=== PATIENT | female | born 1965 | race Caucasian/White ===

== ENCOUNTER 2016-12-08 19:45 | Emergency (ER) | payer OTHER ==
--- NOTE | 2016-12-08 19:58 | PDOC ---
History of Present Illness - General History Source: Patient Exam Limitations: No Limitations - History of Present Illness Initial Comments: 12/08/16 20:17 The patient is a 51 year old female, with a significant past medical history of GERD and chronic back pain, who presents to the emergency department with back pain. She describes her back pain as localized throughput her upper and mid back , moderate in severity, rating it a 8/10 in severity. She denies any radiation of the pain. She reports that her pain is exacerbated with certain movements and when she takes a deep breath. She states that she has a mentality disabled child who is not aware of their own weight. The child jumped on her today which caused the exacerbation of her chronic back pain. The patient denies chest pain, shortness of breath, headache and dizziness. Denies fever, chills, nausea, vomit, diarrhea and constipation. 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), tobacco (10 daily), marijuana and cocaine use (Has been in rehab) <Chano Jansen - Last Filed: 12/08/16 20:24> <Lorelei Mendez - Last Filed: 12/09/16 02:16> - General Chief Complaint: Pain Stated Complaint: NECK, BACK PAIN Time Seen by Provider: 12/08/16 19:54 Past History <Chano Jansen - Last Filed: 12/08/16 20:24> - Past Medical History Anemia: No Asthma: No Cardiac Disorders: No CVA: No COPD: No Diabetes: No GI Disorders: Yes (GERD) Disorders: No HTN: No Hypercholesterolemia: No Kidney Stones: No Suicide Attempt (Hx): No (DENIES) Seizures: No - Surgical History Abdominal Surgery: No Appendectomy: No Cardiac Surgery: No Cholecystectomy: Yes Lung Surgery: No Neurologic Surgery: No Orthopedic Surgery: No - Reproductive History PID: No - Psycho/Social/Smoking Cessation Hx Anxiety: No Suicidal Ideation: No Smoking History: Current every day smoker Have you smoked in the past 12 months: Yes Number of Cigarettes Smoked Daily: 10 'Breaking Loose' booklet given: 06/13/16 Hx Alcohol Use: No (SOBER 14 MONTHS) Drug/Substance Use Hx: Yes (COCAINE/MARIJUANA) Substance Use Type: Alcohol, Cocaine, Marijuana Hx Substance Use Treatment: Yes ([facility]) <Lorelei Mendez - Last Filed: 12/09/16 02:16> - Past Medical History Allergies/Adverse Reactions: Allergies Allergy/AdvReac Type Severity Reaction Status Date / Time No Known Allergies Allergy Verified 12/08/16 19:51 Home Medications: Ambulatory Orders Trazodone HCl [Desyrel -] 100 mg PO HS 04/04/16 Naproxen Sodium [Naproxen Sodium Ds] 550 mg PO BID PRN #20 tablet 12/08/16 Tizanidine HCl [Zanaflex (Nf) -] 2 mg PO TID PRN #12 tablet 12/08/16 Trauma Specific PMHX - Complaint Specific PMHX Arthritis: No <Lorelei Mendez - Last Filed: 12/09/16 02:16> Review of Systems - Review of Systems Able to Perform ROS?: Yes Comments:: 12/08/16 20:17 GENERAL/CONSTITUTIONAL: No fever or chills. No weakness. HEAD, EYES, EARS, NOSE AND THROAT: No change in vision. No ear pain or discharge. No sore throat. CARDIOVASCULAR: No chest pain or shortness of breath RESPIRATORY: No cough, wheezing, or hemoptysis. GASTROINTESTINAL: No nausea, vomiting, diarrhea or constipation. GENITOURINARY: No dysuria, frequency, or change in urination. MUSCULOSKELETAL: +Back pain. No joint or muscle swelling or pain. No neck pain. SKIN: No rash NEUROLOGIC: No headache, vertigo, loss of consciousness, or change in strength/ sensation. ENDOCRINE: No increased thirst. No abnormal weight change HEMATOLOGIC/LYMPHATIC: No anemia, easy bleeding, or history of blood clots. ALLERGIC/IMMUNOLOGIC: No hives or skin allergy. <Chano Jansen - Last Filed: 12/08/16 20:24> *Physical Exam - Vital Signs Last Vital Signs Temp Pulse Resp BP Pulse Ox 98.1 F 81 18 123/81 96 12/08/16 19:45 12/08/16 19:45 12/08/16 19:45 12/08/16 19:45 12/08/16 19:45 - Physical Exam Comments: 12/08/16 20:24 GENERAL: Awake, alert, and fully oriented, in no acute distress HEAD: No signs of trauma, normocephalic, atraumatic EYES: PERRLA, EOMI, sclera anicteric, conjunctiva clear ENT: Auricles normal inspection, hearing grossly normal, nares patent, oropharynx clear without exudates. Moist mucosa NECK: Normal ROM, supple, no lymphadenopathy, JVD, or masses LUNGS: No distress, speaks full sentences, clear to auscultation bilaterally HEART: Regular rate and rhythm, normal S1 and S2, no murmurs, rubs or gallops, peripheral pulses normal and equal bilaterally. ABDOMEN: Soft, nontender, normoactive bowel sounds. No guarding, no rebound. No masses MUSCULOSKELETAL: +Tenderness and pain with movement of right periscapular muscles, right trapezius muscles. No other chest wall tenderness. EXTREMITIES: Normal inspection, Normal range of motion, no edema. No clubbing or cyanosis. NEUROLOGICAL: Cranial nerves II through XII grossly intact. Normal speech, normal gait, no focal sensorimotor deficits SKIN: Warm, Dry, normal turgor, no rashes or lesions noted. <Chano Jansen - Last Filed: 12/08/16 20:24> Progress Note - Progress Note Progress Note: Documentation has been prepared under my direction and personally reviewed by me in its entirety. I attest that this documented accurately reflects all work, treatment, procedures and medical decision making performed by me. <Lorelei Mendez - Last Filed: 12/09/16 02:16> Medical Decision Making - Medical Decision Making As noted above, this 51-year-old woman with history of intermittent upper back pain presents with a several hour history of pain around the right scapula. Pain began as she twisted her back earlier today. Pain now is reproduced with movement of the upper torso and neck. Exam shows tenderness of the right trapezius/right rhomboid muscles with movement of neck and right shoulder. Remainder of the exam is normal. Clinical presentation most consistent with right upper back muscle strain/ muscle spasm. Patient will be treated with Toradol 60 mg IM now. Prescriptions for naproxen 550 mg to be taken twice a day as needed as well as tizanidine 2 mg up to 3 times a day for muscle spasms will be sent to her pharmacy. Patient was also urged to follow-up for physical therapy in order to learn proper strengthening and stretching exercises as well as postural training. She should return to the emergency room if symptoms worsen. <Lorelei Mendez - Last Filed: 12/09/16 02:16> *DC/Admit/Observation/Transfer - Attestations Scribe Attestion: 12/08/16 20:17 Documentation prepared by Chano Jansen, acting as medical insurance coding specialist for Lorelei Mendez MD <Chano Jansen - Last Filed: 12/08/16 20:24> <Lorelei Mendez - Last Filed: 12/09/16 02:16> Diagnosis at time of Disposition: Muscle strain of right upper back Qualifiers: Encounter type: initial encounter Qualified Code(s): S29.012A - Strain of muscle and tendon of back wall of thorax, initial encounter - Discharge Dispostion Disposition: HOME Condition at time of disposition: Stable - Prescriptions Prescriptions: Naproxen Sodium [Naproxen Sodium Ds] 550 mg PO BID PRN #20 tablet PRN Reason: Back Pain Tizanidine HCl [Zanaflex (Nf) -] 2 mg PO TID PRN #12 tablet PRN Reason: Muscle Spasms - Referrals Referrals: Ori Botello MD [Staff Physician] - 1 week - Patient Instructions Printed Discharge Instructions: DI for Thoracic Back Pain Additional Instructions: drink plenty of water local warmth to area of pain Naproxen 550mg twice a day as needed; Take with food Tizanidine 2 mg up to 3 times a day for muscle spasms return to ER if pain worsens followup with orthopedist if pain persists([facility]) consider physical therapy as discussed
[2016-12-08 19:59] VITALS: BP 123/81; PULSE 81; TEMP 98.1; BMI 25.0
[2016-12-08] MEDS ORDERED: KETOROLAC TROMETHAMINE 60 MG/2 ML VIAL IM ONE (20:22)
[2016-12-08] MEDS ORDERED: KETOROLAC TROMETHAMINE 60 MG/2 ML VIAL ONE (20:25)
[2016-12-08] MEDS ORDERED: CYCLOBENZAPRINE HCL 10 MG TABLET (FP) ONE (20:38)
== END 2016-12-08 21:02 | disposition home or self-care (01) ==
LOC: FER 19:45
PROC: 3E0233Z Introduction of Anti-inflammatory into Muscle, Percutaneous Approach (ICD-10-PCS; principal; 2016-12-08)
DX: S29.012A Strain of muscle and tendon of back wall of thorax, initial encounter (principal); W50.0XXA Accidental hit or strike by another person, initial encounter; Y93.89 Activity, other specified; Y92.9 Unspecified place or not applicable; K21.9 Gastro-esophageal reflux disease without esophagitis; G89.29 Other chronic pain; F17.210 Nicotine dependence, cigarettes, uncomplicated
CPT/HCPCS: 99283-25

== ENCOUNTER 2017-06-04 08:46 | Emergency (ER) | payer OTHER ==
[2017-06-04] MEDS ORDERED: KETOROLAC TROMETHAMINE 60 MG/2 ML VIAL IM ONE (09:00)
[2017-06-04 09:01] VITALS: BP 126/77; PULSE 78; TEMP 97.7; BMI 23.3
[2017-06-04] MEDS ORDERED: KETOROLAC TROMETHAMINE 60 MG/2 ML VIAL ONE (09:03)
--- NOTE | 2017-06-04 09:07 | PDOC ---
History of Present Illness - General Chief Complaint: Ear Problem Stated Complaint: LEFT EAR ACHE Time Seen by Provider: 06/04/17 08:59 History Source: Patient, Old Records Exam Limitations: No Limitations - History of Present Illness Initial Comments: 06/04/17 09:10 51-year-old female with history of depression presents to the emergency Department with complaints of 4 day history of left ear pain that started when she was on vacation. The patient has been swimming. The patient reports the pain as being sharp and needlelike that is coming and going. The pain is exacerbated when she bends over, swallows, or yawns. The patient also notes diminished hearing in that ear. The patient has taken Tylenol without relief. The patient denies fevers and chills. She denies URI symptoms. She denies sore throat. She has not had ear infections in the past. She denies sick contacts. Past History - Past Medical History Allergies/Adverse Reactions: Allergies Allergy/AdvReac Type Severity Reaction Status Date / Time No Known Allergies Allergy Verified 06/04/17 08:52 Home Medications: Ambulatory Orders Trazodone HCl [Desyrel -] 100 mg PO HS 04/04/16 Amoxicillin/Potassium Clav [Augmentin 875-125 Tablet] 1 each PO BID #14 tablet 06/04/17 Neomycin/Polymyxin B Sulf/Hc [Ljxsznij-Zibahdbbo-Ch Ear Soln] 4 drop OT QID #1 solution 06/04/17 Sertraline HCl [Zoloft] 200 mg PO DAILY 06/04/17 Anemia: No Asthma: No Cardiac Disorders: No CVA: No COPD: No Diabetes: No GI Disorders: Yes (GERD) Disorders: No HTN: No Hypercholesterolemia: No Kidney Stones: No Suicide Attempt (Hx): No (DENIES) Seizures: No - Surgical History Abdominal Surgery: No Appendectomy: No Cardiac Surgery: No Cholecystectomy: Yes Lung Surgery: No Neurologic Surgery: No Orthopedic Surgery: No - Reproductive History PID: No - Psycho/Social/Smoking Cessation Hx Anxiety: No Suicidal Ideation: No Smoking History: Current every day smoker Have you smoked in the past 12 months: Yes Number of Cigarettes Smoked Daily: 10 'Breaking Loose' booklet given: 06/13/16 Hx Alcohol Use: No (SOBER 14 MONTHS) Drug/Substance Use Hx: Yes (COCAINE/MARIJUANA) Substance Use Type: Alcohol, Cocaine, Marijuana Hx Substance Use Treatment: Yes ([facility]) Review of Systems - Review of Systems Able to Perform ROS?: Yes Is the patient limited Cuban proficient: No Constitutional: No: Symptoms Reported HEENTM: Yes: See HPI Respiratory: No: Symptoms reported Cardiac (ROS): No: Symptoms Reported ABD/GI: No: Symptoms Reported : No: Symptoms Reported Musculoskeletal: No: Symptoms Reported Integumentary: No: Symptoms Reported *Physical Exam - Physical Exam Comments: 06/04/17 09:11 GENERAL: Well developed, well nourished. Awake and alert. No acute distress. HEENT: Normocephalic, atraumatic. PERRLA, EOMI. No conjunctival pallor. Sclera are non- icteric. Moist mucous membranes. Oropharynx is clear. EARS: The right ear has a TM that is intact with a positive light reflex and no erythema. The left ear has significant edema and erythema of the external auditory canal with purulent drainage. The TM appears erythematous and slightly bulging. NECK: Supple. Full ROM. No JVD. No lymphadenopathy. CARDIOVASCULAR: Regular rate and rhythm. No murmurs, rubs, or gallops. Distal pulses are 2+ and symmetric. PULMONARY: No evidence of respiratory distress. Lungs clear to auscultation bilaterally. No wheezing, rales or rhonchi. EXTREMITIES: No cyanosis. No clubbing. No edema. No calf tenderness. SKIN: Warm and dry. Normal capillary refill. No rashes. No jaundice. NEUROLOGICAL: Alert, awake, appropriate. Cranial nerves 2-12 intact. Grossly non-focal exam. PSYCHIATRIC: Cooperative. Good eye contact. Appropriate mood and affect. Medical Decision Making - Medical Decision Making 06/04/17 09:08 51-year-old female with 4 day history of left here pain with diminished hearing. Physical exam is significant for an otitis externa as well as an otitis media. Plan: 1. We'll give Toradol 60 mg IM in the ED for pain 2. Will discharge on Corticosporin eardrops as well as Augmentin 3. I've advised the patient to follow-up with her primary care physician within the next week 4. I've advised the patient to return to the emergency department if her symptoms persist, worsen, or new symptoms arise. *DC/Admit/Observation/Transfer Diagnosis at time of Disposition: Left otitis externa, Left otitis media - Discharge Dispostion Disposition: HOME Condition at time of disposition: Stable Admit: No - Patient Instructions Printed Discharge Instructions: Middle Ear Infection, DI for Otitis Externa Additional Instructions: Take 1 tablet twice daily for the next 7 days. Please follow-up with your primary care physician within the next week and return to the emergency department if your symptoms persist, worsen, or new symptoms arise. He may take ibuprofen 600-800 mg every 6-8 hours as needed for pain. You're being treated for an otitis media and otitis externa. For the otitis externa you'll be taking eardrops
== END 2017-06-04 09:26 | disposition home or self-care (01) ==
LOC: FER 08:46
PROC: 3E0233Z Introduction of Anti-inflammatory into Muscle, Percutaneous Approach (ICD-10-PCS; principal; 2017-06-04)
DX: H60.92 Unspecified otitis externa, left ear (principal); H66.92 Otitis media, unspecified, left ear; F17.210 Nicotine dependence, cigarettes, uncomplicated; K21.9 Gastro-esophageal reflux disease without esophagitis; F32.9 Major depressive disorder, single episode, unspecified
CPT/HCPCS: 99281-25

== ENCOUNTER 2017-09-02 11:02 | Emergency (ER) | payer OTHER ==
[2017-09-02 11:24] VITALS: BP 111/75; PULSE 97; TEMP 98.1; BMI 23.4
[2017-09-02] MEDS ORDERED: diazePAM 5 MG TABLET ONE (12:11)
[2017-09-02] MEDS ORDERED: diazePAM 5 MG TABLET PO ONE (12:13)
--- NOTE | 2017-09-02 12:13 | PDOC ---
History of Present Illness - General Chief Complaint: Back Pain Stated Complaint: neck and back pain Time Seen by Provider: 09/02/17 11:24 - History of Present Illness Initial Comments: 09/02/17 12:15 51yo F hx HL, chronic back pain, insomnia p/w acute on chronic back pain for 5 days. Pain extends from thoracic area to the cervical region. Pt reports carrying heavy items or her grandchildren can trigger her pain but she does not recall a specific traumatic incident. Reports pain became worse after she woke up 5 days ago. Tried naproxen, flexiril, tramadol. Only the tramadol helped. Does not follow with pain management. Denies fevers, chills, CP, SOB, numbness, weakness, abd pain, N/V/D, LE edema, urinary symptoms, headache. Past History - Past Medical History Allergies/Adverse Reactions: Allergies Allergy/AdvReac Type Severity Reaction Status Date / Time No Known Allergies Allergy Verified 06/04/17 08:52 Home Medications: Ambulatory Orders Trazodone HCl [Desyrel -] 100 mg PO HS 04/04/16 Sertraline HCl [Zoloft] 200 mg PO DAILY 06/04/17 Acetaminophen [Tylenol] 650 mg PO PRN PRN 09/02/17 Cyclobenzaprine HCl [Flexeril -] 10 mg PO PRN PRN 09/02/17 Naproxen [Naprosyn -] 250 mg PO PRN PRN 09/02/17 Tramadol HCl [Ultram] 50 mg PO PRN PRN 09/02/17 Anemia: No Asthma: No Cardiac Disorders: No CVA: No COPD: No Diabetes: No GI Disorders: Yes (GERD) Disorders: No HTN: No Hypercholesterolemia: No Kidney Stones: No Psychiatric Problems: Yes (DEPRESSION) Seizures: No Other medical history: back pain - Surgical History Abdominal Surgery: No Appendectomy: No Cardiac Surgery: No Cholecystectomy: Yes Lung Surgery: No Neurologic Surgery: No Orthopedic Surgery: No - Reproductive History PID: No - Suicide/Smoking/Psychosocial Hx Smoking History: Current every day smoker Have you smoked in the past 12 months: Yes Number of Cigarettes Smoked Daily: 5 Information on smoking cessation initiated: Yes 'Breaking Loose' booklet given: 09/02/17 Hx Alcohol Use: No (jenser 2012) Drug/Substance Use Hx: No (COCAINE/MARIJUANA hx 2002) Substance Use Type: None Hx Substance Use Treatment: Yes ([facility]) Review of Systems - Review of Systems Comments:: 09/02/17 12:28 GENERAL/CONSTITUTIONAL: No fever or chills. No weakness. HEAD, EYES, EARS, NOSE AND THROAT: No change in vision. No ear pain or discharge. No sore throat. GASTROINTESTINAL: No nausea, vomiting, diarrhea or constipation. GENITOURINARY: No dysuria, frequency, or change in urination. CARDIOVASCULAR: No chest pain or shortness of breath. RESPIRATORY: No cough, wheezing, or hemoptysis. MUSCULOSKELETAL: No joint or muscle swelling or pain. + neck and back pain. SKIN: No rash NEUROLOGIC: No headache, vertigo, loss of consciousness, or change in strength/ sensation. ENDOCRINE: No increased thirst. No abnormal weight change. HEMATOLOGIC/LYMPHATIC: No anemia, easy bleeding, or history of blood clots. ALLERGIC/IMMUNOLOGIC: No hives or skin allergy. *Physical Exam - Vital Signs Last Vital Signs Temp Pulse Resp BP Pulse Ox 98.1 F 97 H 20 111/75 99 09/02/17 11:03 09/02/17 11:03 09/02/17 11:03 09/02/17 11:03 09/02/17 11:03 - Physical Exam Comments: 09/02/17 12:18 GENERAL: Awake, alert, and fully oriented, in no acute distress HEAD: No signs of trauma EYES: PERRLA, EOMI, sclera anicteric, conjunctiva clear ENT: Auricles normal inspection, hearing grossly normal, nares patent, oropharynx clear without exudates. Moist mucosa NECK: Normal ROM, supple, no lymphadenopathy, JVD, or masses LUNGS: Breath sounds equal, clear to auscultation bilaterally. No wheezes, and no crackles HEART: Regular rate and rhythm, normal S1 and S2, no murmurs, rubs or gallops ABDOMEN: Soft, nontender, normoactive bowel sounds. No guarding, no rebound. No masses EXTREMITIES: Normal range of motion, no edema. No clubbing or cyanosis. No cords, erythema, or tenderness NEUROLOGICAL: Normal speech, cranial nerves intact, negative pronator drift, 5/ 5 strength in all 4 extremities, normal sensation to light touch in all 4 extremities, normal cerebellar exam, normal gait, normal reflexes and tone BACK: no midline ttp of cervical, thoracic, and lumbar spines. +paraspinal ttp from C1 to T2. Able to range neck but with pain. SKIN: Warm, Dry, normal turgor, no rashes or lesions noted. Medical Decision Making - Medical Decision Making 09/02/17 12:19 51-year-old female with a history of chronic back pain presents with acute on chronic back pain. Vitals unremarkable. Patient is neurologically intact. Pain is likely secondary to muscle strain or spasm given paraspinal ttp. Will provide analgesia with Valium and Toradol. Will check urine test. 09/02/17 14:14 UPT negative. Patient given Toradol and Valium with significant relief in symptoms. Likely muscle strain or spasm. I recommended that the patient follow up with a primary doctor and be evaluated for physical therapy. We'll discharge the patient with 1-2 days of Valium and recommend naproxen twice a day. I discussed the physical exam findings, ancillary test results and final diagnoses with the patient. I answered all of the patient's questions. The patient was satisfied with the care received and felt comfortable with the discharge plan and treatment plan. The patient will call their primary care physician within 24 hours to arrange follow-up and will return to the Emergency Department with any new, persistent or worsening symptoms. *DC/Admit/Observation/Transfer Diagnosis at time of Disposition: Back pain, Neck pain - Discharge Dispostion Disposition: HOME Condition at time of disposition: Stable Admit: No - Referrals - Patient Instructions - Post Discharge Activity - Attestations Physician Attestion: 09/02/17 14:16 I, Dr. Kristina Moulton MD, attest that this document has been prepared under my direction and personally reviewed by me in its entirety. I further attest, that it accurately reflects all work, treatment, procedures and medical decision -making performed by me.
[2017-09-02] MEDS ORDERED: KETOROLAC TROMETHAMINE 60 MG/2 ML VIAL IM ONE (13:05)
[2017-09-02] MEDS ORDERED: KETOROLAC TROMETHAMINE 60 MG/2 ML VIAL ONE (13:25)
== END 2017-09-02 14:43 | disposition home or self-care (01) ==
LOC: FER 11:02
PROC: 3E0233Z Introduction of Anti-inflammatory into Muscle, Percutaneous Approach (ICD-10-PCS; principal; 2017-09-02)
DX: M54.9 Dorsalgia, unspecified (principal); M54.2 Cervicalgia; G89.29 Other chronic pain; F17.210 Nicotine dependence, cigarettes, uncomplicated; K21.9 Gastro-esophageal reflux disease without esophagitis; F32.9 Major depressive disorder, single episode, unspecified
CPT/HCPCS: 84703; 99282-25

== ENCOUNTER 2017-12-05 11:17 | Emergency (ER) | payer OTHER ==
--- NOTE | 2017-12-05 11:20 | PDOC ---
History of Present Illness - General Chief Complaint: Cold Symptoms Stated Complaint: cough,fever Time Seen by Provider: 12/05/17 11:20 - History of Present Illness Initial Comments: 12/05/17 13:39 Ms Nice is a 52 yo F presenting emergency department with a complaint of a cough for 3 days. Patient states her temperature was 102. 2 weeks ago she was exposed to the flu, her son was ill. Patient states she's had such a bad cough that throughout her back. She also notes sinus pressure and a migraine. She has been taking NyQuil, Tylenol, Tylenol PM, vitamin C with no improvement. Patient states she initially had phlegm but this is decreased. She knows that her chest is sore when she coughs. No international travel Past medical history: Hyperlipidemia Past surgical history: Medications: Zoloft, atorvastatin, trazodone, hydroxyzine ALLERGIES, NO KNOWN DRUG ALLERGIES. Social: Patient uses tobacco, estimates 5 cigarettes per day, no drugs, no alcohol GENERAL/CONSTITUTIONAL: Yes: fever, chills, weakness, loss of appetite. HEAD, EYES, EARS, NOSE AND THROAT: No: change in vision, ear pain, discharge, sore throat, throat swelling. CARDIOVASCULAR: Yes: chest pain with cough No: lightheadedness, palpitations, syncope RESPIRATORY: Yes: cough, No: shortness of breath, wheezing, hemoptysis, stridor. GASTROINTESTINAL: No: nausea, vomiting, diarrhea, abdominal pain GENITOURINARY: No: dysuria, hematuria, frequency, urgency, flank pain. MUSCULOSKELETAL: Yes: back pain No: neck pain, joint pain, muscle swelling or pain SKIN AND BREASTS: No: lesions, pallor, rash or easy bruising. NEUROLOGIC: No: headache, vertigo, paresthesias, weakness GENERAL: The patient is in no acute distress. HEAD: Normal with no signs of trauma. EYES: PERRLA, EOMI, sclera anicteric, conjunctiva clear. ENT: Ears normal, nares patent, oropharynx clear without exudates. Moist mucous membranes. NECK: Normal range of motion, supple without lymphadenopathy, JVD, or masses. LUNGS: RLL rhonchi, exp wheezing HEART:Regular rate and rhythm, normal S1 and S2 without murmur, rub or gallop. ABDOMEN: Soft, nontender, normoactive bowel sounds. No guarding, no rebound. EXTREMITIES: Normal range of motion, no edema. No clubbing or cyanosis. No erythema, or tenderness. NEUROLOGICAL: Cranial nerves II through XII grossly intact. Normal speech. No focal neurological deficits. MUSCULOSKELETAL: Lumbar midline tenderness to palpation SKIN: Warm, Dry, normal turgor, no rashes or lesions noted. Past History - Past Medical History Allergies/Adverse Reactions: Allergies Allergy/AdvReac Type Severity Reaction Status Date / Time No Known Allergies Allergy Verified 12/05/17 11:18 Home Medications: Ambulatory Orders traZODone HCL [Desyrel -] 300 mg PO HS 04/04/16 Sertraline HCl [Zoloft] 50 mg PO DAILY 06/04/17 Amoxicillin/Potassium Clav [Augmentin 875-125 Tablet] 1 each PO BID #14 tablet 12/05/17 Atorvastatin Calcium 20 mg PO HS 12/05/17 Benzonatate [Tessalon Pearls -] 100 mg PO TID PRN #21 capsule 12/05/17 Codeine Phosphate/Guaifenesin [Guaifenesin AC Cough Syrup] 10 ml PO Q8H PRN # 120 ml MDD 30 12/05/17 Fluticasone Prop 0.05% Nasal [Flonase -] 1 - 2 spray NS BID #1 spray.pump Oseltamivir Phosphate [Tamiflu -] 75 mg PO BID #10 capsule 12/05/17 hydrOXYzine PAMOATE [Vistaril -] 25 mg PO TID 12/05/17 Anemia: No Asthma: No Cardiac Disorders: No CVA: No COPD: No Diabetes: No GI Disorders: Yes (GERD) Disorders: No HTN: No Hypercholesterolemia: No Kidney Stones: No Psychiatric Problems: Yes (DEPRESSION) Seizures: No - Surgical History Abdominal Surgery: No Appendectomy: No Cardiac Surgery: No Cholecystectomy: Yes Lung Surgery: No Neurologic Surgery: No Orthopedic Surgery: No - Reproductive History PID: No - Suicide/Smoking/Psychosocial Hx Smoking History: Current every day smoker Have you smoked in the past 12 months: Yes Number of Cigarettes Smoked Daily: 5 'Breaking Loose' booklet given: 09/02/17 Hx Alcohol Use: No (sober 2012) Drug/Substance Use Hx: No (COCAINE/MARIJUANA hx 2002) Substance Use Type: None Hx Substance Use Treatment: Yes ([facility]) ED Treatment Course - LABORATORY CBC & Chemistry Diagram: 12/05/17 12:14 12/05/17 12:14 Medical Decision Making - Medical Decision Making 12/05/17 13:42 This is a 52-year-old female presenting to the emergency department due to cough which is now nonproductive, fevers, exposure to flu, sinus pressure. Differential diagnosis includes: Clinical pneumonia, sinusitis, influenza Will do: Labs, chest x-ray, reassess 12/05/17 13:43 Laboratory Tests 12/05/17 12/05/17 12/05/17 12:14 12:14 12:14 WBC 3.9 L Hgb 13.4 Hct 39.8 Plt Count 213 Sodium 135 L Potassium 3.6 Chloride 106 Carbon Dioxide 26 BUN 10 Creatinine 0.8 Random Glucose 98 Urine Blood Urine Nitrite Ur Leukocyte Esterase Urine RBC Urine WBC Urine HCG, Qual Negative 12/05/17 12:21 WBC Hgb Hct Plt Count Sodium Potassium Chloride Carbon Dioxide BUN Creatinine Random Glucose Urine Blood 1+ H Urine Nitrite Negative Ur Leukocyte Esterase Negative Urine RBC 2-5 Urine WBC 0-2 Urine HCG, Qual Chest x-ray not officially read Lung jameson appear clear Will discharge to home with Augmentin and Flomax Will ask pt to rest and stay hydrated as much as possibly Clinical impression: Sinusitis, initial presentation Influenza, initial presentation Pneumonia, initial presentation 12/06/17 21:10 *DC/Admit/Observation/Transfer Diagnosis at time of Disposition: Viral syndrome, Cough - Discharge Dispostion Disposition: HOME Condition at time of disposition: Stable Admit: No - Prescriptions Prescriptions: Amoxicillin/Potassium Clav [Augmentin 875-125 Tablet] 1 each PO BID #14 tablet Benzonatate [Tessalon Pearls -] 100 mg PO TID PRN #21 capsule PRN Reason: Cough Codeine Phosphate/Guaifenesin [Guaifenesin AC Cough Syrup] 10 ml PO Q8H PRN # 120 ml MDD 30 PRN Reason: Cough Fluticasone Prop 0.05% Nasal [Flonase -] 1 - 2 spray NS BID #1 spray.pump Oseltamivir Phosphate [Tamiflu -] 75 mg PO BID #10 capsule - Referrals - Patient Instructions Printed Discharge Instructions: DI for Sinusitis, DI for Viral Upper Respiratory Infection -- Adult, DI for Influenza -- Adult Additional Instructions: Ms Nice Thank you for coming in to the ER today Today you were seen for an upper respiratory infection. Please take the antibiotics and tamiflu as directed. You may use Flonase or over the counter decongestants as needed for nasal congestion. You may take tessalon perles as needed for cough during the day. You may take robitussin AC as needed for cough at night. Do not drive or operate heavy machinery while taking this medication as it may make you drowsy. Stay well hydrated and rest. Follow up with your primary care provider within 24 to 48 hours. Go to the emergency room if any new or worsening symptoms develop. - Post Discharge Activity
[2017-12-05 11:25] VITALS: BP 131/108; PULSE 88; TEMP 98.9; BMI 23.4
[2017-12-05] MEDS ORDERED: SODIUM CHLORIDE 500 ML IV STA (11:46)
[2017-12-05] MEDS ORDERED: KETOROLAC TROMETHAMINE 30 MG/1 ML VIAL IVPUSH ONE (11:46)
[2017-12-05 12:40] LABS: URINE APPEARANCE Clear; URINE BILIRUBIN Negative (NEGATIVE); URINE GLUCOSE (UA) Negative (NEGATIVE); URINE KETONE Negative (NEGATIVE); URINE LEUK ESTERASE Negative (NEGATIVE); URINE NITRITE Negative (NEGATIVE)
[2017-12-05 12:41] LABS: ALBUMIN 4.1 g/dl (3.5-5.0); ALK PHOS 59 U/L (32-92); ANION GAP 3 (8-16); BLOOD UREA NITROGEN 10 mg/dl (7-18); CALCIUM 8.7 mg/dl (8.4-10.2); CHLORIDE 106 mmol/L (98-107); CO2 26 mmol/L (22-28); GLUCOSE,RANDOM 98 mg/dl (74-106); POTASSIUM 3.6 mmol/L (3.5-5.1); SGOT/AST 29 U/L (10-42); SGPT/ALT 20 U/L (10-40); SODIUM 135 mmol/L (136-145); TOT PROT 7.5 g/dl (6.4-8.3)
[2017-12-05 12:43] LABS: HEMATOCRIT 39.8 % (32.4-45.2); HEMOGLOBIN 13.4 GM/dl (10.7-15.3); MCH 31.4 pg (25.7-33.7); MCHC 33.8 g/dl (32.0-36.0); MEAN CELL VOLUME 92.9 fl (80-96); MEAN PLT VOLUME 7.9 fl (7.5-11.1); PLATELET COUNT 213 K/MM3 (134-434); RBC 4.29 M/mm3 (3.60-5.2); RDW 12.8 % (11.6-15.6); WHITE BLOOD COUNT 3.9 K/mm3 (4.0-10.8)
[2017-12-05 12:55] LABS: CREATININE 0.8 mg/dl (0.6-1.3)
[2017-12-05 12:56] LABS: URINE BLOOD 1+ (NEGATIVE); URINE COLOR YELLOW; URINE PROTEIN 1+ (NEGATIVE)
[2017-12-05] MEDS ORDERED: KETOROLAC TROMETHAMINE 30 MG/1 ML VIAL ONE (13:00)
[2017-12-05 13:05] LABS: BILIRUBIN,TOTAL 0.5 mg/dl (0.2-1.0)
[2017-12-05 13:27] LABS: EPI CELLS FEW /HPF; URINE BACTERIA NONE SEEN /hpf (NEGATIVE); URINE MUCUS 1+; URINE WBC 0-2 (0-5)
[2017-12-05 14:10] LABS: PLATELET ESTIMATE SLT INCREASE
== END 2017-12-05 13:54 | disposition home or self-care (01) ==
LOC: FER 11:17
PROC: 3E0333Z Introduction of Anti-inflammatory into Peripheral Vein, Percutaneous Approach (ICD-10-PCS; principal; 2017-12-05)
PROC: 3E0337Z Introduction of Electrolytic and Water Balance Substance into Peripheral Vein, Percutaneous Approach (ICD-10-PCS; 2017-12-05)
DX: B34.9 Viral infection, unspecified (principal); R05 Cough
CPT/HCPCS: 36415; 71046-TC-FY; 80053; 81003; 81015; 84703; 85025; 87040; 87086; 96361; 96374; 99283-25